=== PATIENT | male | born 1975 | race Caucasian/White ===

== ENCOUNTER 2022-04-25 07:08 | Day surgery (SDC) | payer SELFPAY ==
[2022-04-18 11:47] VITALS: BMI 26.1
[2022-04-25] MEDS ORDERED: BUPIVACAINE HCL/PF 0.25% (2.5MG/ML) 10 ML VIAL ONE (07:55)
[2022-04-25] MEDS ORDERED: LIDOCAINE HCL 1%, 10 MG/ML (20ML VIAL) ONE (07:56)
[2022-04-25] MEDS ORDERED: BACITRACIN 15 GM TUBE TOPICAL OINTMENT ONE (07:56)
[2022-04-25] MEDS ORDERED: METHYLENE BLUE 50 MG/10 ML AMPUL ONE (08:12)
[2022-04-25] MEDS ORDERED: PROPOFOL 20 ML ONE ×2 (09:18)
[2022-04-25] MEDS ORDERED: ROCURONIUM BROMIDE 50 MG/5 ML SYRINGE ONE (09:18)
[2022-04-25] MEDS ORDERED: KETOROLAC TROMETHAMINE 30 MG/1 ML VIAL ONE (09:32)
[2022-04-25] MEDS ORDERED: ceFAZolin SODIUM 1 GM VIAL ONE ×2 (09:32)
[2022-04-25] MEDS ORDERED: DEXAMETHASONE SOD PHOSPHATE 4 MG/1 ML VIAL ONE (09:32)
[2022-04-25] MEDS ORDERED: ONDANSETRON 4 MG/2 ML VIAL ONE (09:32)
[2022-04-25] MEDS ORDERED: MIDAZOLAM HCL 2 MG/2 ML SINGLE DOSE VIAL ONE (09:32)
[2022-04-25] MEDS ORDERED: NEOSTIGMINE METHYLSULFATE 0.5 MG/1 ML - 10 ML MDV ONE (10:42)
[2022-04-25] MEDS ORDERED: GLYCOPYRROLATE 0.2 MG/1 ML VIAL ONE ×2 (10:42)
[2022-04-25] MEDS ORDERED: PROMETHAZINE HCL 25 MG/1 ML VIAL IVPUSH PRN (11:18)
[2022-04-25] MEDS ORDERED: oxyCODONE HCL 5 MG TABLET PO PRN (11:18)
[2022-04-25] MEDS ORDERED: ONDANSETRON 4 MG/2 ML VIAL IVPUSH PRN (11:18)
[2022-04-25 12:04] VITALS: TEMP 97.8
[2022-04-25 12:54] VITALS: BP 128/73; PULSE 56
== END 2022-04-25 13:05 | disposition home or self-care (01) ==
LOC: FASU 07:08
PROVIDERS: ATTEND Surgery
PROC: 0HBV0ZZ Excision of Bilateral Breast, Open Approach (ICD-10-PCS; principal; 2022-04-25 09:46)
DX: N64.59 Other signs and symptoms in breast (principal)
CPT/HCPCS: 88305-TC; 94760; Q9968